=== PATIENT | female | born 1960 | race Caucasian/White ===

== ENCOUNTER 2016-11-01 14:37 | Outpatient (CLI) | payer OTHER ==
--- NOTE | 2016-11-01 16:59 | DIAGNOSTIC IMAGING REPORT ---
PROCEDURE: MG BILATERAL SCREENING W/CAD INDICATION: SCREENING,TENDERNESS TECHNIQUE: Bilateral CC and MLO digital views. COMPARISON: Mammograms 12/20/2014, 04/02/2012, 05/04/2009. FINDINGS: Computer-aided detection applied. Mild dense. No change in the right upper outer quadrant intramammary lymph node. Scattered dystrophic calcifications. IMPRESSION: 1. Negative mammogram RESULT CODE: 1- Negative. A. A negative report should not delay biopsy if a dominant or clinically suspicious mass is present. 10-15% of cancers are not identified by x-ray. B. A negative report may reinforce clinical impression. C. Adenosis and dense breasts may obscure an underlying neoplasm. D. False positive reports average 6-10%. E.. A yearly screening mammogram is recommended. A reminder letter will be scheduled.
== END 2016-11-01 23:00 ==
LOC: MAM SRH 14:37
DX: Z12.31 Encounter for screening mammogram for malignant neoplasm of breast (principal)